=== PATIENT | male | born 1995 | race African-American/Black ===

== ENCOUNTER 2022-03-15 22:21 | Emergency (ER) | payer SELFPAY ==
[~2022-03-15] VITALS: Ht 190.5 cm; Wt 78.0 kg
[2022-03-15] MEDS ORDERED: HYDROCODONE/ACETAMINOPHEN 5/325MG TABLET PO ONE (23:15)
[2022-03-15] MEDS ORDERED: KETOROLAC 60MG/2ML VIAL IM ONE (23:45)
[2022-03-16] MEDS ORDERED: MORPHINE SULFATE 10 MG/ML CPJ IM ONE
[2022-03-16] MEDS ORDERED: ACETAMINOPHEN 325MG TABLET PO ONE (05:00)
[2022-03-16] MEDS ORDERED: OXYCODONE HCL/ACETAMINOPHEN 5/325MG TABLET PO ONE (09:00)
[2022-03-16] MEDS ORDERED: OXYCODONE HCL/ACETAMINOPHEN 5/325MG TABLET PO NR (10:45)
[2022-03-16] MEDS ORDERED: OXYC-100 PO (12:13)
[2022-03-16 20:00] VITALS: BP 116/71
== END 2022-03-16 20:10 | disposition home or self-care (01) ==
LOC: ER 22:21
DX: M79.661 Pain in right lower leg (principal); M25.551 Pain in right hip; M25.562 Pain in left knee; M54.59 Other low back pain; R26.2 Difficulty in walking, not elsewhere classified; M25.511 Pain in right shoulder; W01.0XXA Fall on same level from slipping, tripping and stumbling without subsequent striking against object, initial encounter; Y93.89 Activity, other specified; Y92.012 Bathroom of single-family (private) house as the place of occurrence of the external cause; S82.391A Other fracture of lower end of right tibia, initial encounter for closed fracture; Y93.61 Activity, american tackle football; Y92.89 Other specified places as the place of occurrence of the external cause
CPT/HCPCS: 72100; 73060; 73502; 73562; 73590; 96372; 99284; J1885; J2270; Z7610